=== PATIENT | male | born 1945 | race Caucasian/White ===

== ENCOUNTER 2017-04-20 06:29 | Day surgery (SDC) | payer MEDICARE, BC, OTHER ==
[~2017-04-20] VITALS: Ht 172.7 cm; Wt 86.4 kg
[~2017-04-20 06:29] MED LIST: ALPR2TAB3 PO; ASPI81TA82 PO; CLON.1 PO; EZET10 PO; FOLI1TAB PO; HYDR10TA23 PO; ISOS20TA38 PO; JALYCAP PO; LOSA100T PO; MAGN400T19 PO; METF1000 PO; METO100T9 PO; NITR0.4S SL; PLAV75TA PO; RANE1000 PO; ROSU40 PO; VIST25CA PO; VITATAB11 PO; XANA0.5T PO
[2017-04-20 06:47] VITALS: BP 211/101; PULSE 88; RESP 20; TEMP 97.8; O2SAT 93
[2017-04-20] MEDS ORDERED: FOLI800T PO (07:02)
[2017-04-20] MEDS ORDERED: TRAM50TA PO (07:02)
[2017-04-20] MEDS ORDERED: METO100T9 PO (07:02)
[2017-04-20] MEDS ORDERED: JALYCAP PO (07:02)
[2017-04-20] MEDS ORDERED: LORA-373 PO (07:02)
[2017-04-20] MEDS ORDERED: MAGN400T2 PO (07:02)
[2017-04-20] MEDS ORDERED: PROC10TA PO (07:02)
[2017-04-20] MEDS ORDERED: NITR1SUB3 SL (07:02)
[2017-04-20] MEDS ORDERED: OLAN2.5T PO (07:02)
[2017-04-20] MEDS ORDERED: ENOX80P SQ (07:02)
[2017-04-20] MEDS ORDERED: VITATAB11 (07:02)
[2017-04-20] MEDS ORDERED: BICA50TA PO (07:02)
[2017-04-20] MEDS ORDERED: OMEP20TA PO (07:02)
[2017-04-20] MEDS ORDERED: FERR325C PO (07:02)
[2017-04-20] MEDS ORDERED: LOSA50TA PO (07:02)
[2017-04-20 07:27] LABS: AUTOMATED NEUTROPHIL # 3.6 TH/MM3 (1.8-7.7); BASOPHIL % 0.6 % (0.0-2.0); EOSINOPHIL # 0.1 TH/MM3 (0-0.4); EOSINOPHIL % 1.5 % (0.0-4.0); HEMATOCRIT 31.9 % (39.0-51.0); HEMO FLAGS DIFF FINAL; MEAN CELL VOLUME 82.8 FL (80.0-100.0); MEAN CORPUSCULAR HEMOGLOBIN 27.9 PG (27.0-34.0); MEAN CORPUSCULAR HGB CONC 33.7 % (32.0-36.0); MONO % 9.2 % (0.0-8.0); NEUT % 56.7 % (16.0-70.0); PLATELET COUNT 279 TH/MM3 (150-450); RED BLOOD COUNT 3.85 MIL/MM3 (4.50-5.90); RED CELL DISTRIBUTION WIDTH 15.3 % (11.6-17.2); WHITE BLOOD COUNT 6.4 TH/MM3 (4.0-11.0)
[2017-04-20] MEDS ORDERED: ceFAZolin 2 GM PREMIX 50 ML - implanted port/tunneled catheter insertion IV SCH (07:30)
[2017-04-20] MEDS ORDERED: POVIDONE IODINE 5% (ANTISEPSIS KIT) 4 APPLICATIONS EACH NARE SCH (07:30)
[2017-04-20] MEDS ORDERED: CHLORHEXIDINE GLUCONATE 2 % 1 PACK (2 CLOTHS) TOPICAL SCH (07:30)
[2017-04-20] MEDS ORDERED: SODIUM CHLORIDE 0.9% 1000 ML IV SCH (07:30)
[2017-04-20] MEDS ORDERED: VANCOMYCIN 1000 MG/NS 250 ML - implanted port/tunneled catheter IV SCH ×2 (07:30)
[2017-04-20 07:40] LABS: APTT (PATIENT) 28.2 SEC (24.3-30.1); PROTHROMBIN TIME - PATIENT 10.5 SEC (9.8-11.6)
[2017-04-20] MEDS ORDERED: MIDAZOLAM HCL 2 MG/2 ML VIAL ONE (07:57)
[2017-04-20] MEDS ORDERED: LIDOCAINE 1%/EPINEPHrine 1:100,000 SOLN 20 ML VIAL ONE (08:09)
--- NOTE | 2017-04-20 09:11 | PD.RAD ---
Post Procedure Progress Note Pre Procedure Diagnosis: (1) Gastric carcinoma Post Procedure Diagnosis: (1) Gastric carcinoma Procedure Date: Apr 20, 2017 Supervising Radiologist: Camilo Armenta JR Proceduralist/Assist: Jonnathan Madera RT(R), RT Krystal(R)() Anesthesia: Conscious Sedation Plan of Activity Patient to Unit: ROPU Patient Condition: Good See PACS Report for procedural detail/treatment Central Venous Access Device Procedure 1 Right Internal Jugular Infusaport Placement single lumen Cameroonian: 8 Findings: Port in good position and functions well. OK to use Plan F/U in 10-14 days Jr. Armenta Thomas Justin MD Apr 20, 2017 09:11
[2017-04-20] MEDS ORDERED: SODIUM CHLORIDE 0.9% FLUSH 10 ML FLUSH IVF PRN (09:15)
[2017-04-20 09:25] VITALS: BP 186/84; PULSE 89; RESP 18; TEMP 98.5; O2SAT 92
[2017-04-20 09:40] VITALS: BP 167/74; PULSE 81; RESP 16; O2SAT 97
[2017-04-20 10:10] VITALS: BP 155/70; PULSE 80; RESP 16; O2SAT 95
[2017-04-20 10:40] VITALS: BP 134/69; PULSE 80; RESP 16; O2SAT 94
--- NOTE | 2017-04-20 11:34 | RADRPT ---
EXAM DATE/TIME: 04/20/2017 08:20 [facility] COMPARISON: No previous studies available for comparison. INDICATIONS : Patient with gastric cancer in need of port placement for chemotherapy. MEDICAL HISTORY : 1.Acoustic neuroma 2.Angina pectoris 3.Anxiety 4.Arthralgia 5.BPH 6.CAD 7.Carotid artery stenosis 8.Cataract 9.CVA 10.GERD 11.Hyperlipidemia 12.HTN 13.Iron deficiency anemia 14.Kidney stones 15.PVD 16.Pulmonary embolism 17.Prostate cancer 18.Sleep apnea SURGICAL HISTORY : 1.IVC filter placement 2.Coronary stent ENCOUNTER: Initial ACUITY: 7-11 months PAIN SCORE: 5/10 LOCATION: Left upper quadrant/abdominal. FLUORO TIME: 0.7 minutes IMAGE SERIES: 1 SEDATION TIME: 30 minutes ACCESS: Right internal jugular vein SEDATION: 1.) 4 mg midazolam (Versed) IV 2.) 200 mcg fentanyl (Sublimaze) IV Prophylactic antibiotics were administered with appropriate pre-procedure timing. Vancomycin within 2 hours of procedure, Ancef (or alternative) within 1 hour of procedure. DEVICE: 1. 8 Bhutanese single lumen Angiodynamics smart power port PROCEDURE : 1. Continuous pulse oximetry and EKG monitoring. 2. Intravenous conscious sedation. 3. Ultrasound guidance for venous access. 4. Fluoroscopic guided implantable central venous port placement. The patient was placed supine. The neck was prepped in sterile fashion. Full sterile technique was u sed, including cap, mask, sterile gloves and gown, and a large sterile sheet. Hand hygiene and 2% ch lorhexidine Betadine was utilized per protocol for cutaneous antisepsis with appropriate dry time for site. Sterile gel and sterile probe cover were utilized for ultrasound guidance. The skin and sub cutaneous tissues were infiltrated with local anesthetic solution. Under direct ultrasound guidance, central venous access was accomplished in the targeted vessel. The ultrasound images depicting access guidance were stored and saved to PACS for permanent record. A s ubcutaneous pocket was created using blunt dissection. The port was introduced to the pocket. The c atheter tubing was fed through a subcutaneous tunnel to the venotomy site. The catheter tubing was c ut to a suitable length and then was introduced through a valved Peel-Away sheath and positioned with catheter tubing tip at the cavo-atrial junction level. The pocket incision was closed with subcutic ular Vicryl suture. Steri-Strips were applied. The port was flushed and locked with heparin solutio n per protocol. Sterile dressing was applied to the site. The patient tolerated the procedure well. Conscious sedation was performed with the prescribed dosages and duration as above in the presence of an independent trained radiology nurse to assist in the monitoring of the patient. EKG and oximetry remained stable throughout the procedure. The patient tolerated the procedure well and there were no complications. The patient was sent to post anesthesia recovery in stable condition. CONCLUSION: Uncomplicated ultrasound and fluoroscopic guided implanted central venous port catheter placement as described in detail above. An 8 Bhutanese Power port was placed. Camilo Armenta Jr., MD on April 20, 2017 at 11:31 Board Certified Radiologist. This report was verified electronically.
== END 2017-04-20 11:33 | disposition home or self-care (01) ==
LOC: HROP 06:29 → HRIP 06:33 → HROP 11:33
PROVIDERS: ATTEND Internal Medicine
DX: C16.9 Malignant neoplasm of stomach, unspecified (principal); D64.9 Anemia, unspecified; I82.509 Chronic embolism and thrombosis of unspecified deep veins of unspecified lower extremity; I10 Essential (primary) hypertension; K21.9 Gastro-esophageal reflux disease without esophagitis; N40.0 Benign prostatic hyperplasia without lower urinary tract symptoms; Z95.5 Presence of coronary angioplasty implant and graft; Z01.818 Encounter for other preprocedural examination
CPT/HCPCS: 36561; 76937; 77001; 85025; 85610; 85730; 99152; 99153; C1788; J0690; J1642; J2250; J3010; J3370; J7030; J7050

== ENCOUNTER 2017-05-04 06:46 | Day surgery (SDC) | payer MEDICARE, BC, OTHER ==
[~2017-05-04] VITALS: Ht 172.7 cm; Wt 86.4 kg
[2017-05-04] VITALS (8 sets, daily range): BP systolic 104–190; BP diastolic 45–95; PULSE 68–82; RESP 16–20; TEMP 97.6–98.4; O2SAT 92–95
[~2017-05-04 06:46] MED LIST changes: -ALPR2TAB3 PO; -ASPI81TA82 PO; +BICA50TA PO; -CLON.1 PO; +ENOX80P SQ; -EZET10 PO; +FERR325C PO; -FOLI1TAB PO; +FOLI800T PO; -HYDR10TA23 PO; -ISOS20TA38 PO; +LORA0.5T PO; -LOSA100T PO; +LOSA50TA PO; -MAGN400T19 PO; +MAGN400T2 PO; -METF1000 PO; -METO100T9 PO; +METO1TAB43 PO; -NITR0.4S SL; +NITR1SUB3 SL; +OLAN2.5T7 PO; +OMEP20TA93 PO; -PLAV75TA PO; +PROC10TA PO; -RANE1000 PO; -ROSU40 PO; +TRAM50TA PO; -VIST25CA PO; +VITATAB11; -VITATAB11 PO; -XANA0.5T PO
[2017-05-04] MEDS ORDERED: LIDOCAINE 1%/EPINEPHrine 1:100,000 SOLN 20 ML VIAL ONE (07:40)
[2017-05-04] MEDS ORDERED: MIDAZOLAM HCL 2 MG/2 ML VIAL ONE (07:53)
--- NOTE | 2017-05-04 08:41 | PD.RAD ---
Post CT Procedure Prog Note Pre Procedure Diagnosis: (1) Gastric carcinoma Post Procedure Diagnosis: (1) Gastric carcinoma Procedure Date: May 04, 2017 Supervising Radiologist: Ariel Mac Anesthesia: Conscious Sedation Plan of Activity Patient to Unit: ROPU Patient Condition: Good See PACS Report for procedural detail/treatment Ariel Mac MD May 04, 2017 08:40
[2017-05-04] MEDS ORDERED: HYDROmorphone HCL 2 MG TAB PO PRN (08:45)
[2017-05-04] MEDS ORDERED: PILL SPLITTER OTHER PRN (09:00)
--- NOTE | 2017-05-04 09:36 | RADRPT ---
EXAM DATE/TIME: 05/04/2017 08:04 [facility] COMPARISON: No previous studies available for comparison. INDICATIONS : History of gastric CA with metastatic disease to the omentum and liver. Additional biopsy has been re quested for genetic testing. The hepatic mass will be targeted to ensure adequate tissue. SEDATION TIME: 30 minutes BIOPSY SITE: Liver MEDICATION(S): 1.) 3 mg midazolam (Versed) IV 2.) 200 mcg fentanyl (Sublimaze) IV DEVICE(S): 1.) 18 gauge Temno core biopsy needle 2.) 17 gauge Coaxial 3.) Gelfoam MEDICAL HISTORY : Carcinoma, gastric. Metastatic, liver. Cardiovascular disease. Prostate cancer. Hypertension. SURGICAL HISTORY : Coronary artery stent. ENCOUNTER: Initial ACUITY: 1 day PAIN SCORE: 0/10 LOCATION: Liver A total of five core specimen(s) were obtained and sent to the laboratory for pathologic evaluation. PROCEDURE: 1. CT guided liver biopsy. 2. Conscious sedation with continuous EKG and oximetry monitoring. 3. EKG and oximetry remained stable throughout the procedure. Prior to the procedure informed consent was obtained. Any appropriate prior imaging studies were rev iewed. Using automated exposure control and adjustment of the mA and/or kV according to patient size, radiat ion dose was kept as low as reasonably achievable to obtain optimal diagnostic quality images. DICOM format image data is available electronically for review and comparison. The site was prepped in a sterile fashion. Full sterile technique was used, including cap, mask, karin rile gloves and gown and a large sterile sheet. Hand hygiene and 2% chlorhexidine and/or betadine/al cohol prep was utilized per protocol for cutaneous antisepsis. The skin and subcutaneous tissues wer e infiltrated with local anesthetic solution. With CT guidance the previously identified target was localized. Biopsy was performed using the presc ribed needle as above. Adequate hemostasis was obtained with compression at the puncture site. Follow-up CT scan reveals no hemorrhage. The patient tolerated the procedure well and there were no complications. The patient was returned to the Radiology Outpatient Unit in stable condition. CONCLUSION: Uncomplicated CT guided biopsy. Ariel Mac MD on May 04, 2017 at 9:31 Board Certified Radiologist. This report was verified electronically.
== END 2017-05-04 12:38 | disposition home or self-care (01) ==
LOC: HRAD 06:46 → HRIP 06:49 → HRAD 12:38
PROVIDERS: ATTEND Internal Medicine
DX: C78.7 Secondary malignant neoplasm of liver and intrahepatic bile duct (principal); C16.9 Malignant neoplasm of stomach, unspecified; C61 Malignant neoplasm of prostate; I10 Essential (primary) hypertension; I25.10 Atherosclerotic heart disease of native coronary artery without angina pectoris; Z95.5 Presence of coronary angioplasty implant and graft
CPT/HCPCS: 47000; 77012; 88307; 88341; 88342; 88360; 88377; J1642; J2250; J3010

== ENCOUNTER 2017-05-18 12:14 | Inpatient (IN) | payer MEDICARE, BC, OTHER ==
[~2017-05-18] VITALS: Ht 172.7 cm; Wt 82.7 kg
[2017-05-18 12:44] VITALS: BP 113/56; PULSE 95; RESP 18; TEMP 99.1; O2SAT 96
[2017-05-18 13:42] VITALS: BP 130/53; PULSE 74; RESP 18; TEMP 98.9; O2SAT 96
[2017-05-18] MEDS ORDERED: SODIUM CHLORIDE 0.9% FLUSH 10 ML FLUSH IVF PRN (14:00)
[2017-05-18] MEDS ORDERED: PROCHLORPERAZINE INJ 10 MG/2 ML VIAL IV PUSH ONE (14:00)
[2017-05-18 14:55] VITALS: BP 135/60; PULSE 78; RESP 18; O2SAT 95
[2017-05-18 15:09] LABS: AUTOMATED NEUTROPHIL # 18.8 TH/MM3 (1.8-7.7); BASOPHIL # 0.1 TH/MM3 (0-0.2); BASOPHIL % 0.3 % (0.0-2.0); EOSINOPHIL % 0.1 % (0.0-4.0); HEMATOCRIT 26.9 % (39.0-51.0); LYMPH % 8.1 % (9.0-44.0); LYMPHOCYTE # 1.7 TH/MM3 (1.0-4.8); MEAN CELL VOLUME 78.6 FL (80.0-100.0); MEAN CORPUSCULAR HEMOGLOBIN 25.6 PG (27.0-34.0); MEAN CORPUSCULAR HGB CONC 32.6 % (32.0-36.0); MONO % 2.2 % (0.0-8.0); NEUT % 89.3 % (16.0-70.0); PLATELET COUNT 364 TH/MM3 (150-450); RED BLOOD COUNT 3.43 MIL/MM3 (4.50-5.90); RED CELL DISTRIBUTION WIDTH 14.6 % (11.6-17.2)
[2017-05-18 15:15] LABS: HEMO FLAGS AUTO DIFF
[2017-05-18 15:16] LABS: CHLORIDE 99 MEQ/L (98-107); POTASSIUM 4.3 MEQ/L (3.5-5.1); SODIUM (NA) 134 MEQ/L (136-145)
[2017-05-18 15:20] LABS: ANION GAP 7 MEQ/L (5-15); APTT (PATIENT) 36.4 SEC (24.3-30.1); BICARBONATE 27.8 MEQ/L (21.0-32.0); BLOOD UREA NITROGEN 19 MG/DL (7-18); PROTHROMBIN TIME - PATIENT 11.2 SEC (9.8-11.6)
[2017-05-18 15:23] LABS: ALT (GPT) 33 U/L (12-78); AST (GOT) 25 U/L (15-37); GLOMERULAR FILTRATION RATE 54 ML/MIN (>89)
--- NOTE | 2017-05-18 15:24 | RADRPT ---
EXAM DATE/TIME: 05/18/2017 15:11 [facility] COMPARISON: CHEST SINGLE AP, July 04, 2014, 16:10. INDICATIONS : Difficulty breathing and wheezing. MEDICAL HISTORY : Carcinoma, gastric. Metastatic, liver. Cardiovascular disease. Prostate cancer. Hypertension. SURGICAL HISTORY : CABG. Coronary artery stent. Infusaport. ENCOUNTER: Initial ACUITY: 1 day PAIN SCORE: 0/10 LOCATION: Bilateral chest FINDINGS: A single view of the chest demonstrates the lungs to be symmetrically aerated without evidence of mas s, infiltrate or effusion. The cardiomediastinal contours are unremarkable. Osseous structures are intact. CONCLUSION: Normal examination. At least 4 intact sternal wires. Right-sided Jnqunt-m-Tevr catheter in good posit ion. Ignacio Huynh MD on May 18, 2017 at 15:22 Board Certified Radiologist. This report was verified electronically.
[2017-05-18 15:25] LABS: TOTAL BILIRUBIN ADULT 0.5 MG/DL (0.2-1.0)
[2017-05-18 15:26] LABS: ALKALINE PHOSPHATASE 160 U/L (45-117)
[2017-05-18 15:37] LABS: CREATINE KINASE 47 U/L (39-308)
[2017-05-18 15:40] LABS: SCAN/DIFF AUTO DIFF CONFIRMED
[2017-05-18 15:52] VITALS: BP 142/64; PULSE 71; RESP 17; O2SAT 97
[2017-05-18] MEDS ORDERED: IOHEXOL 350 MG/ML 10 ML VIAL (for RAD DIAG) IVCONTRAST ONE (16:15)
--- NOTE | 2017-05-18 16:25 | RADRPT ---
EXAM DATE/TIME: 05/18/2017 16:00 [facility] COMPARISON: No previous studies available for comparison. INDICATIONS : Right chest pain. Evaluate for embolism. IV CONTRAST: 65 cc Omnipaque 350 (iohexol) IV RADIATION DOSE: 14.72 CTDIvol (mGy) MEDICAL HISTORY : Carcinoma, prostate. Carcinoma, gastric. Cerebrovascular disease. Hypertension. SURGICAL HISTORY : CABG ENCOUNTER: Initial ACUITY: 1 day PAIN SCALE: 5/10 LOCATION: Right chest TECHNIQUE: Volumetric scanning of the chest was performed using a pulmonary embolism protocol MIP images were re constructed. Using automated exposure control and adjustment of the mA and/or kV according to patien t size, radiation dose was kept as low as reasonably achievable to obtain optimal diagnostic quality images. DICOM format image data is available electronically for review and comparison. Follow-up recommendations for detected pulmonary nodules are based at a minimum on nodule size and pa tient risk factors according to Fleischner Society Guidelines. FINDINGS: PULMONARY ARTERIES: No filling defects are seen in the pulmonary arteries through the segmental level. LUNGS: There is a minimal consolidation left lung base . There is no pneumothorax . No concerning pulmonary nodule is visualized. 2 mm pulmonary nodule right upper lobe. 1 cm nodule left lower lobe PLEURAE: There is no pleural thickening or pleural effusion. MEDIASTINUM: There is good visualization of the great vessels of the middle mediastinum. No evidence of mediastin al or hilar adenopathy/mass. Dense coronary atherosclerotic disease. Clips and wires suggest CABG MUSCULOSKELETAL: Within normal limits for patient age. MISCELLANEOUS: The visualized upper abdominal organs demonstrate no acute abnormality. CONCLUSION: No evidence of pulmonary embolism. Small pleural nodule left lower lobe should be followed with nonco ntrast chest CT in 6 months. Minimal consolidation left lung base. Dense coronary atherosclerotic dis ease. Ignacio Huynh MD on May 18, 2017 at 16:20 Board Certified Radiologist. This report was verified electronically.
--- NOTE | 2017-05-18 16:59 | PD ---
HPI Chief Complaint: Respiratory Symptoms Time Seen by Provider: 13:47 Travel History International Travel<30 days: No Contact w/Intl Traveler<30days: No Traveled to known affect area: No History of Present Illness HPI Patient is a 72 year old male presents to the ER for evaluation of cough, sob and hiccoughs. Patient is undergoing chemotherapy for gastric cancer and has occaisional phrenic nerve irritation. Hiccups present for the past 24 hours. His states that she gave him opiate pain medication last night and thinks she might have over-medicated him. No fevers, no sputum production. Symptoms moderate, gradually worsening, context as above, associated s/s as above. PFSH Past Medical History Anxiety: Yes Cancer: Yes (prostate, stomach) Cardiac Catheterization: Yes Cardiovascular Problems: Yes (cabg, heart stents, vascular stents) Diabetes: Yes Patient Takes Glucophage: No Endocrine: No Gastrointestinal Disorders: Yes (stomach cancer, ulcers) Genitourinary: Yes (prostate cancer) Hepatitis: No Hiatal Hernia: Yes Hypertension: Yes Immune Disorder: No Kidney Stones: Yes Medical other: Yes Musculoskeletal: Yes (arthritis in knees) Neurologic: Yes (cva x 2) Psychiatric: Yes (anxiety) Reproductive: No Respiratory: Yes (sleep apnea) Immunizations Current: No Thyroid Disease: No Tetanus Vaccination: Unknown Influenza Vaccination: No Past Surgical History AICD: No Cardiac Surgery: Yes (triple bypass) Coronary Artery Bypass Graft: Yes Coronary Stent: Yes Joint Replacement: No Pacemaker: No Other Surgery: Yes Social History Alcohol Use: Yes Tobacco Use: No Substance Use: No Allergies-Medications (Allergen,Severity, Reaction): Coded Allergies: No Known Allergies (Unverified Allergy, Unknown, 05/18/17) Reported Meds & Prescriptions Reported Meds & Active Scripts Active Reported Vitamin B Complex (B-Complex Vitamins) 1 Tab DAILY Tramadol (Tramadol HCl) 50 Mg Tab 50 Mg PO Q8H PRN Prochlorperazine Maleate 10 Mg Tab 10 Mg PO Q4H PRN Omeprazole 20 Mg Tab 20 Mg PO DAILY Bicalutamide 50 Mg Tab 50 Mg PO DAILY Hazardous agent; use appropriate precautions for handling & disposal. Losartan (Losartan Potassium) 50 Mg Tab 50 Mg PO DAILY Magnesium Oxide 400 Mg Tab 400 Mg PO DAILY Nitroglycerin SL (Nitroglycerin) 0.4 Mg Subl 0.4 Mg SL DIRECTED PRN ONE TABLET UNDER THE TONGUE NEEDED FOR CHEST PAIN, MAY REPEAT EVERY FIVE MINUTES FOR A TOTAL OF 3 DOSES OR CALL 911 IF NO RELIEF Iron (Ferrous Sulfate) 325 Mg Cap 325 Mg PO DAILY Lovenox Inj (Enoxaparin Sodium) 80 mg/0.8 ML Syr 80 Mg SQ BID Olanzapine 2.5 Mg Tab 2.5 Mg PO HS Folic Acid 0.8 Mg Tab 1,000 Mcg PO DAILY Metoprolol Succinate ER 24 HR (Metoprolol Succinate) 100 Mg Tab 100 Mg PO DAILY Caro (Dutasteride-Tamsulosin) 0.5-0.4 Mg Cap 1 Cap PO DAILY Lorazepam 0.5 Mg Tab 0.5 Mg PO DAILY PRN Review of Systems Except as stated in HPI: all other systems reviewed are Neg Physical Exam Narrative GENERAL: WD/WN appears chronically ill but non-toxic. SKIN: Warm and dry. HEAD: Atraumatic. Normocephalic. EYES: Pupils equal and round. No scleral icterus. No injection or drainage. ENT: No nasal bleeding or discharge. Mucous membranes pink and moist. NECK: Trachea midline. No JVD. CARDIOVASCULAR: Tachycardic when he stands, regular rhythm. RESPIRATORY: No accessory muscle use. Clear to auscultation. Breath sounds equal bilaterally. GASTROINTESTINAL: Abdomen soft, non-tender, nondistended. Hepatic and splenic margins not palpable. MUSCULOSKELETAL: Extremities without clubbing, cyanosis, or edema. No obvious deformities. NEUROLOGICAL: Awake and alert. No obvious cranial nerve deficits. Motor grossly within normal limits. Five out of 5 muscle strength in the arms and legs. Normal speech. PSYCHIATRIC: Appropriate mood and affect; insight and judgment normal. Data Data Last Documented VS Vital Signs Date Time Temp Pulse Resp B/P (MAP) Pulse Ox O2 Delivery O2 Flow Rate FiO2 05/18/17 15:52 71 17 142/64 (90) 97 05/18/17 13:42 98.9 Orders Orders Electrocardiogram (05/18/17 13:58) Ckmb (Isoenzyme) Profile (05/18/17 13:58) Complete Blood Count With Diff (05/18/17 13:58) Comprehensive Metabolic Panel (05/18/17 13:58) Magnesium (Mg) (05/18/17 13:58) Prothrombin Time / Inr (Pt) (05/18/17 13:58) Act Partial Throm Time (Ptt) (05/18/17 13:58) Troponin I (05/18/17 13:58) Chest, Single Ap (05/18/17 13:58) Ecg Monitoring (05/18/17 13:58) Iv Access Insert/Monitor (05/18/17 13:58) Oximetry (05/18/17 13:58) Oxygen Administration (05/18/17 13:58) Sodium Chloride 0.9% Flush (Ns Flush) (05/18/17 14:00) Ct Pulmonary Angiogram (05/18/17 ) Prochlorperazine Inj (Compazine Inj) (05/18/17 14:00) Influenzae A/B Antigen (05/18/17 15:33) Iohexol 350 Inj (Omnipaque 350 Inj) (05/18/17 16:15) Lactic Acid (05/18/17 16:53) Blood Culture (05/18/17 16:53) Vancomycin Inj (Vancomycin Inj) (05/18/17 17:00) Piperacil-Tazo 4.5 Gm Premix (Zosyn 4.5 (05/18/17 17:00) Admit Order (Ed Use Only) (05/18/17 ) Labs Laboratory Tests Test 05/18/17 14:55 White Blood Count 21.0 TH/MM3 Red Blood Count 3.43 MIL/MM3 Hemoglobin 8.8 GM/DL Hematocrit 26.9 % Mean Corpuscular Volume 78.6 FL Mean Corpuscular Hemoglobin 25.6 PG Mean Corpuscular Hemoglobin Concent 32.6 % Red Cell Distribution Width 14.6 % Platelet Count 364 TH/MM3 Mean Platelet Volume 7.8 FL Neutrophils (%) (Auto) 89.3 % Lymphocytes (%) (Auto) 8.1 % Monocytes (%) (Auto) 2.2 % Eosinophils (%) (Auto) 0.1 % Basophils (%) (Auto) 0.3 % Neutrophils # (Auto) 18.8 TH/MM3 Lymphocytes # (Auto) 1.7 TH/MM3 Monocytes # (Auto) 0.5 TH/MM3 Eosinophils # (Auto) 0.0 TH/MM3 Basophils # (Auto) 0.1 TH/MM3 CBC Comment AUTO DIFF Differential Comment AUTO DIFF CONFIRMED Prothrombin Time 11.2 SEC Prothromb Time International Ratio 1.0 RATIO Activated Partial Thromboplast Time 36.4 SEC Blood Urea Nitrogen 19 MG/DL Creatinine 1.30 MG/DL Random Glucose 107 MG/DL Total Protein 6.7 GM/DL Albumin 2.8 GM/DL Calcium Level 8.9 MG/DL Magnesium Level 2.0 MG/DL Alkaline Phosphatase 160 U/L Aspartate Amino Transf (AST/SGOT) 25 U/L Alanine Aminotransferase (ALT/SGPT) 33 U/L Total Bilirubin 0.5 MG/DL Sodium Level 134 MEQ/L Potassium Level 4.3 MEQ/L Chloride Level 99 MEQ/L Carbon Dioxide Level 27.8 MEQ/L Anion Gap 7 MEQ/L Estimat Glomerular Filtration Rate 54 ML/MIN Total Creatine Kinase 47 U/L Troponin I LESS THAN 0.02 NG/ML MDM Medical Decision Making Medical Screen Exam Complete: Yes Emergency Medical Condition: Yes Differential Diagnosis PE, PNA, Immunocompromise, Neutropenia, sepsis. Narrative Course Patient 72-year-old female history gastric cancer on chemotherapy last chemotherapy was a week and a half ago by Dr. Mcgowan presents emergency department with cough congestion shortness of breath which had fairly high suspicion of PE. Initially afebrile infection less likely. CAT scan of the chest shows a small left base consolidation and on discussing with he had taken opiates last night and had over medicated and therefore possibly aspiration last night.. Will be started on broad-spectrum antibiotic given his white count 20,000 he is technically septic with mild tachycardia. He appears well in low index systems are septic shock, does not meet criteria for aggressive fluid resuscitation. Lactic acid was sent once the patient had an infection source suspected/revealed which was after CT scan. Discussed with Dr. Lyman for admission Last 24 hours Impressions Chest X-Ray 05/18/17 1358 Signed Impressions: Service Date/Time: Thursday, May 18, 2017 15:11 - CONCLUSION: Normal examination. At least 4 intact sternal wires. Right-sided [id number] catheter in good position. Ignacio Huynh MD CT Angiography 05/18/17 0000 Signed Impressions: Service Date/Time: Thursday, May 18, 2017 16:00 - CONCLUSION: No evidence of pulmonary embolism. Small pleural nodule left lower lobe should be followed with noncontrast chest CT in 6 months. Minimal consolidation left lung base. Dense coronary atherosclerotic disease. Ignacio Huynh MD Diagnosis Primary Impression: Sepsis Additional Impression: Aspiration pneumonia of left lower lobe Admitting Information Admitting Physician Requests: Admit Condition: Stable Jaxson Minor MD May 18, 2017 16:59
[2017-05-18] MEDS ORDERED: VANCOMYCIN INJ 1,000 MG in SODIUM CHLOR 0.9% 250 ML INJ 250 ML IV ONE (17:00)
[2017-05-18] MEDS ORDERED: PIPERACIL-TAZO 4.5 GM PREMIX 100 ML IV ONE (17:00)
[2017-05-18] MEDS ORDERED: ONDANSETRON HCL 4 MG/2 ML VIAL IVP PRN (17:15)
[2017-05-18] MEDS ORDERED: SODIUM CHLORIDE 0.9% FLUSH 10 ML FLUSH IV FLUSH PRN (17:15)
[2017-05-18] MEDS ORDERED: MAGNESIUM HYDROXIDE SUSP 30 ML CUP PO PRN (17:15)
[2017-05-18] MEDS ORDERED: NALOXONE HCL 0.4 MG/ML AMP IV PUSH PRN (17:15)
[2017-05-18] MEDS ORDERED: ACETAMINOPHEN 325 MG TAB PO PRN ×2 (17:15)
--- NOTE | 2017-05-18 17:19 | HHI.HP ---
HPI Service [facility] Primary Care Physician Non-Staff Admission Diagnosis Pneumonia/Sepsis. Diagnoses: (1) Aspiration pneumonia of left lower lobe (2) Sepsis Chief Complaint: Shortness of breath and cough production Travel History International Travel<30 Days: No Contact w/Intl Traveler <30 Da: No Traveled to Known Affected Are: No Sepsis Criteria SIRS Criteria (2 or more): Heart rate over 90, WBC > 02276, < 4000 or > 10% bands Sepsis Criteria (SIRS+source): Infect source susp/known Criteria Outcome: Meets sepsis criteria History of Present Illness 72-year-old man with a history of gastric cancer and currently on chemotherapy therapy presented to the ED for evaluation of cough congestion, shortness of breath 48 hours duration. Over the past several days, patient has been having difficulty with hiccups and insomnia. Patient's was concerned about his breathing last night and gave him in addition to his Ativan some oxycodone in order to allow him to sleep, however patient started having severe cough production with sputum but denies any febrile episode. He denies any GI bleed Review of Systems Except as stated in HPI: all other systems reviewed are Neg Past Family Social History Past Medical History Anxiety: Yes cabg, heart stents, vascular stents Diabetes: Yes stomach cancer, ulcers prostate cancer Hiatal Hernia: Yes Hypertension: Yes Kidney Stones: Yes cva x 2 sleep apnea Past Surgical History Cardiac Surgery: Yes (triple bypass) Coronary Artery Bypass Graft: Yes Coronary Stent: Yes Reported Medications Vitamin B Complex (B-Complex Vitamins) 1 Tab DAILY Tramadol (Tramadol HCl) 50 Mg Tab 50 Mg PO Q8H PRN Prochlorperazine Maleate 10 Mg Tab 10 Mg PO Q4H PRN Omeprazole 20 Mg Tab 20 Mg PO DAILY Bicalutamide 50 Mg Tab 50 Mg PO DAILY Hazardous agent; use appropriate precautions for handling & disposal. Losartan (Losartan Potassium) 50 Mg Tab 50 Mg PO DAILY Magnesium Oxide 400 Mg Tab 400 Mg PO DAILY Nitroglycerin SL (Nitroglycerin) 0.4 Mg Subl 0.4 Mg SL DIRECTED PRN ONE TABLET UNDER THE TONGUE NEEDED FOR CHEST PAIN, MAY REPEAT EVERY FIVE MINUTES FOR A TOTAL OF 3 DOSES OR CALL 911 IF NO RELIEF Iron (Ferrous Sulfate) 325 Mg Cap 325 Mg PO DAILY Lovenox Inj (Enoxaparin Sodium) 80 mg/0.8 ML Syr 80 Mg SQ BID Olanzapine 2.5 Mg Tab 2.5 Mg PO HS Folic Acid 0.8 Mg Tab 1,000 Mcg PO DAILY Metoprolol Succinate ER 24 HR (Metoprolol Succinate) 100 Mg Tab 100 Mg PO DAILY Caro (Dutasteride-Tamsulosin) 0.5-0.4 Mg Cap 1 Cap PO DAILY Lorazepam 0.5 Mg Tab 0.5 Mg PO DAILY PRN Allergies: Coded Allergies: No Known Allergies (Unverified Allergy, Unknown, 05/18/17) Family History Due to patient advanced age, family's history not relevant Social History Alcohol Use: Yes Tobacco Use: No Substance Use: No Physical Exam Vital Signs Vital Signs Date Time Temp Pulse Resp B/P (MAP) Pulse Ox O2 Delivery O2 Flow Rate FiO2 05/18/17 12:44 99.1 95 18 113/56 (75) 96 Physical Exam GENERAL: This is a well-nourished, well-developed patient, in no apparent distress. SKIN: No rashes, ecchymoses or lesions. Cool and dry. HEAD: Atraumatic. Normocephalic. No temporal or scalp tenderness. EYES: Pupils equal round and reactive. Extraocular motions intact. No scleral icterus. No injection or drainage. ENT: Nose without bleeding, purulent drainage or septal hematoma. Throat without erythema, tonsillar hypertrophy or exudate. Uvula midline. Airway patent. NECK: Trachea midline. No JVD or lymphadenopathy. Supple, nontender, no meningeal signs. CARDIOVASCULAR: Regular rate and rhythm without murmurs, gallops, or rubs. RESPIRATORY: Clear to auscultation. Breath sounds decreased bilaterally. No wheezes, rales, or rhonchi. GASTROINTESTINAL: Abdomen soft, non-tender, nondistended. No hepato-splenomegaly , or palpable masses. No guarding. MUSCULOSKELETAL: Extremities without clubbing, cyanosis, or edema. No joint tenderness, effusion, or edema noted. No calf tenderness. Negative Homans sign bilaterally. NEUROLOGICAL: Awake and alert. Cranial nerves II through XII intact. Motor and sensory grossly within normal limits. Five out of 5 muscle strength in all muscle groups. Normal speech. Laboratory Laboratory Tests Test 05/18/17 14:55 White Blood Count 21.0 Red Blood Count 3.43 Hemoglobin 8.8 Hematocrit 26.9 Mean Corpuscular Volume 78.6 Mean Corpuscular Hemoglobin 25.6 Mean Corpuscular Hemoglobin Concent 32.6 Red Cell Distribution Width 14.6 Platelet Count 364 Mean Platelet Volume 7.8 Neutrophils (%) (Auto) 89.3 Lymphocytes (%) (Auto) 8.1 Monocytes (%) (Auto) 2.2 Eosinophils (%) (Auto) 0.1 Basophils (%) (Auto) 0.3 Neutrophils # (Auto) 18.8 Lymphocytes # (Auto) 1.7 Monocytes # (Auto) 0.5 Eosinophils # (Auto) 0.0 Basophils # (Auto) 0.1 CBC Comment AUTO DIFF Differential Comment AUTO DIFF CONFIRMED Prothrombin Time 11.2 Prothromb Time International Ratio 1.0 Activated Partial Thromboplast Time 36.4 Blood Urea Nitrogen 19 Creatinine 1.30 Random Glucose 107 Total Protein 6.7 Albumin 2.8 Calcium Level 8.9 Magnesium Level 2.0 Alkaline Phosphatase 160 Aspartate Amino Transf (AST/SGOT) 25 Alanine Aminotransferase (ALT/SGPT) 33 Total Bilirubin 0.5 Sodium Level 134 Potassium Level 4.3 Chloride Level 99 Carbon Dioxide Level 27.8 Anion Gap 7 Estimat Glomerular Filtration Rate 54 Total Creatine Kinase 47 Troponin I LESS THAN 0.02 Date/Time Source Procedure Growth Status 05/18/17 16:25 Nasal Aspirate Influenza Types A,B Antigen (SONU) - Final NEGATIVE FOR FLU A AND B ANTIGEN.... Complete Result Diagram: 05/18/17 1455 05/18/17 1455 Imaging Last Impressions Chest X-Ray 05/18/17 1358 Signed Impressions: Service Date/Time: Thursday, May 18, 2017 15:11 - CONCLUSION: Normal examination. At least 4 intact sternal wires. Right-sided [id number] catheter in good position. Ignacio Huynh MD CT Angiography 05/18/17 0000 Signed Impressions: Service Date/Time: Thursday, May 18, 2017 16:00 - CONCLUSION: No evidence of pulmonary embolism. Small pleural nodule left lower lobe should be followed with noncontrast chest CT in 6 months. Minimal consolidation left lung base. Dense coronary atherosclerotic disease. MD Luna Hoffman VTE Risk Assessment Capcortez VTE Risk Assessment: Mod/High Risk (score >= 2) Caprini Risk Assessment Model Point Value = 1 Point Value = 2 Point Value = 3 Point Value = 5 Age 41-60 Minor surgery BMI > 25 kg/m2 Swollen legs Varicose veins or History of unexplained or recurrent spontaneous Oral contraceptives or hormone replacement Sepsis (< 1 month) Serious lung disease, including pneumonia (< 1 month) Abnormal pulmonary function Acute myocardial infarction Congestive heart failure (< 1 month) History of inflammatory bowel disease Medical patient at bed rest Age 61-74 Arthroscopic surgery Major open surgery (> 45 min) Laparoscopic surgery (> 45 min) Malignancy Confined to bed (> 72 hours) Immobilizing plaster cast Central venous access Age >= 75 History of VTE Family history of VTE Factor V Leiden Prothrombin [id number] Lupus anticoagulant Anticardiolipin antibodies Elevated serum homocysteine Heparin-induced thrombocytopenia Other congenital or acquired thrombophilia Stroke (< 1 month) Elective arthroplasty Hip, pelvis, or leg fracture Acute spinal cord injury (< 1 month) Prophylaxis Regimen Total Risk Factor Score Risk Level Prophylaxis Regimen 0-1 Low Early ambulation 2 Moderate Order ONE of the following: *Sequential Compression Device (SCD) *Heparin 5000 units SQ BID 3-4 Higher Order ONE of the following medications: *Heparin 5000 units SQ TID *Enoxaparin/Lovenox 40 mg SQ daily (WT < 150 kg, CrCl > 30 mL/min) *Enoxaparin/Lovenox 30 mg SQ daily (WT < 150 kg, CrCl > 10-29 mL/min) *Enoxaparin/Lovenox 30 mg SQ BID (WT < 150 kg, CrCl > 30 mL/min) AND/OR *Sequential Compression Device (SCD) 5 or more Highest Order ONE of the following medications: *Heparin 5000 units SQ TID (Preferred with Epidurals) *Enoxaparin/Lovenox 40 mg SQ daily (WT < 150 kg, CrCl > 30 mL/min) *Enoxaparin/Lovenox 30 mg SQ daily (WT < 150 kg, CrCl > 10-29 mL/min) *Enoxaparin/Lovenox 30 mg SQ BID (WT < 150 kg, CrCl > 30 mL/min) AND *Sequential Compression Device (SCD) Assessment and Plan Problem List: (1) Sepsis ICD Code: A41.9 - Sepsis, unspecified organism (2) Aspiration pneumonia of left lower lobe ICD Code: J69.0 - Pneumonitis due to inhalation of food and vomit (3) Aspiration pneumonia ICD Code: J69.0 - Pneumonitis due to inhalation of food and vomit Assessment and Plan 72-year-old man with Sepsis Heart rate over 90, WBC > 93750, < 4000 or > 10% bands Infect source susp/known (aspiration pneumonia) Check lactic acid Status post vancomycin and Zosyn X 1 in ED, will start instead Unasyn IV Q6 hour Aspiration pneumonia of left lower lobe CT angiography noted and review by me with finding of minimal consolidation lower lung base Status post vancomycin and Zosyn, will start instead Unasyn IV every 6 hours pending culture report Check sputum Keep oxygen saturation above 92% Leukocytosis Above infectious processes, monitor Hypertension Resume Lopressor, Cozaar BPH Resume outpatient medications History of gastric cancer Resume outpatient medications Consider oncology consultation Code Status Full code Discussed Condition With Patient, , ED physician Physician Certification 2 Midnight Certification Type: Admission for Inpatient Services Order for Inpatient Services The services are ordered in accordance with Medicare regulations or non- Medicare payer requirements, as applicable. In the case of services not specified as inpatient-only, they are appropriately provided as inpatient services in accordance with the 2-midnight benchmark. Estimated LOS (days): 2 days is the estimated time the patient will need to remain in the hospital, assuming treatment plan goals are met and no additional complications. Post-Hospital Plan: Not yet determined Problem Qualifiers (1) Aspiration pneumonia of left lower lobe: Qualified Codes: J69.0 - Pneumonitis due to inhalation of food and vomit Juan José Lyman MD May 18, 2017 17:19
[2017-05-18] MEDS ORDERED: RESP: ALBUTEROL 2.5 MG/IPRATROPIUM 0.5 MG NEB (PRN) NEB (17:30)
[2017-05-18] MEDS ORDERED: ENALAPRILAT 2.5 MG/2 ML VIAL IV PUSH PRN (17:30)
[2017-05-18 17:50] VITALS: BP 138/60; PULSE 74; RESP 17; TEMP 99.5; O2SAT 95
[2017-05-18 20:00] VITALS: BP 135/63; PULSE 91; RESP 20; TEMP 98.1; O2SAT 97
[2017-05-18] MEDS ORDERED: OXYC1CAP PO (20:48)
[2017-05-18] MEDS: LACTOBACILLUS ACIDOPHILUS TAB PO SCH (20:50)
[2017-05-18] MEDS: SODIUM CHLORIDE 0.9% FLUSH 10 ML FLUSH IV FLUSH SCH (20:51)
[2017-05-18] MEDS ORDERED: OLANZapine 2.5 MG TAB PO SCH (21:00)
[2017-05-18] MEDS: AMPICILLIN-SULBACTAM INJ 3 GM in SODIUM CHLORIDE 0.9% INJ 100 ML IV SCH (22:27)
[2017-05-19] VITALS: BP 118/58; PULSE 86; RESP 20; TEMP 98.5; O2SAT 97
[2017-05-19] MEDS: AMPICILLIN-SULBACTAM INJ 3 GM in SODIUM CHLORIDE 0.9% INJ 100 ML IV SCH ×2 (05:21→13:40)
[2017-05-19 07:50] VITALS: BP 127/59; PULSE 92; RESP 20; TEMP 98.7; O2SAT 96
--- NOTE | 2017-05-19 08:58 | HHI.PR ---
Subjective Remarks Follow-up aspiration pneumonia/sepsis 05/19/17-patient seen and examined, currently afebrile, states he had a good nicely. Reports improvement of shortness of breath. Hiccups improving. Patient was up and ambulated with assistance of PT. by the bedside. Objective Vitals Vital Signs Date Time Temp Pulse Resp B/P (MAP) Pulse Ox O2 Delivery O2 Flow Rate FiO2 05/19/17 00:00 98.5 86 20 118/58 (78) 97 05/18/17 22:39 Nasal Cannula 2.00 05/18/17 20:00 98.1 91 20 135/63 (87) 97 05/18/17 18:35 05/18/17 17:50 99.5 74 17 138/60 (86) 95 05/18/17 15:52 71 17 142/64 (90) 97 05/18/17 14:55 78 18 135/60 (85) 95 05/18/17 13:42 98.9 74 18 130/53 (78) 96 05/18/17 12:44 99.1 95 18 113/56 (75) 96 I/O 05/18/17 05/18/17 05/18/17 05/19/17 05/19/17 05/19/17 07:00 15:00 23:00 07:00 15:00 23:00 Intake Total 350 ml 220 ml Balance 350 ml 220 ml Intake Oral 120 ml IV Total 350 ml 100 ml # Voids 2 # Bowel Movements 3 Result Diagram: 05/18/17 1455 05/18/17 1455 Imaging Last Impressions Chest X-Ray 05/18/17 1358 Signed Impressions: Service Date/Time: Thursday, May 18, 2017 15:11 - CONCLUSION: Normal examination. At least 4 intact sternal wires. Right-sided Qmkdzf-i-Nibo catheter in good position. Ignacio Huynh MD CT Angiography 05/18/17 0000 Signed Impressions: Service Date/Time: Thursday, May 18, 2017 16:00 - CONCLUSION: No evidence of pulmonary embolism. Small pleural nodule left lower lobe should be followed with noncontrast chest CT in 6 months. Minimal consolidation left lung base. Dense coronary atherosclerotic disease. Ignacio Huynh MD Objective Remarks GENERAL: NAD SKIN: Warm and dry. HEAD: Normocephalic. EYES: No scleral icterus. No injection or drainage. NECK: Supple, trachea midline. No JVD or lymphadenopathy. CARDIOVASCULAR: Regular rate and rhythm without murmurs, gallops, or rubs. RESPIRATORY: Breath sounds equal bilaterally. No accessory muscle use. GASTROINTESTINAL: Abdomen soft, non-tender, nondistended. MUSCULOSKELETAL: No cyanosis, or edema. BACK: Nontender without obvious deformity. No CVA tenderness. Procedures none A/P Problem List: (1) Aspiration pneumonia of left lower lobe ICD Code: J69.0 - Pneumonitis due to inhalation of food and vomit (2) Sepsis ICD Code: A41.9 - Sepsis, unspecified organism Assessment and Plan 72-year-old man with Sepsis-resolved Infect source susp/known (aspiration pneumonia) Normal lactic acid Status post vancomycin and Zosyn X 1 in ED, currently on Unasyn IV Q6 hour pending culture report Aspiration pneumonia of left lower lobe CT angiography with finding of minimal consolidation lower lung base Status post vancomycin and Zosyn, continue Unasyn IV every 6 hours pending culture report Keep oxygen saturation above 92% Leukocytosis Above infectious processes, monitor. CBC pending Hypertension Currently on Lopressor, Cozaar BPH Continue outpatient medications History of gastric cancer Continue outpatient medications Consider oncology consultation DVT prophylaxis: Bilateral SCDs Patient's condition tremendously improved since admission, therefore he will be discharged home on oral antibiotic Juan José Lyman MD May 19, 2017 08:58
[2017-05-19] MEDS ORDERED: TAMSULOSIN HCL 0.4 MG CAP PO SCH (09:00)
[2017-05-19] MEDS ORDERED: FINASTERIDE 5 MG TAB PO SCH (09:00)
[2017-05-19] MEDS ORDERED: LOSARTAN 50 MG TAB PO SCH (09:00)
[2017-05-19] MEDS ORDERED: METOPROLOL SUCCINATE 50 MG EXTENDED RELEASE TAB PO SCH (09:00)
[2017-05-19] MEDS ORDERED: BICALUTAMIDE 50 MG TAB PO SCH (09:00)
[2017-05-19] MEDS ORDERED: PANTOPRAZOLE SOD 20 MG DELAYED RELEASE TAB PO SCH (09:00)
[2017-05-19 09:38] LABS: AUTOMATED NEUTROPHIL # 10.7 TH/MM3 (1.8-7.7); BASOPHIL % 0.1 % (0.0-2.0); EOSINOPHIL % 0.2 % (0.0-4.0); HEMATOCRIT 24.3 % (39.0-51.0); LYMPH % 11.9 % (9.0-44.0); LYMPHOCYTE # 1.5 TH/MM3 (1.0-4.8); MEAN CELL VOLUME 79.8 FL (80.0-100.0); MEAN CORPUSCULAR HEMOGLOBIN 26.4 PG (27.0-34.0); MEAN CORPUSCULAR HGB CONC 33.1 % (32.0-36.0); NEUT % 84.8 % (16.0-70.0); PLATELET COUNT 298 TH/MM3 (150-450); RED BLOOD COUNT 3.05 MIL/MM3 (4.50-5.90); RED CELL DISTRIBUTION WIDTH 15.1 % (11.6-17.2); WHITE BLOOD COUNT 12.6 TH/MM3 (4.0-11.0)
[2017-05-19 09:41] LABS: HEMO FLAGS DIFF FINAL
--- NOTE | 2017-05-19 09:58 | EKG ---
Date Performed: 05/18/2017 Time Performed: 14:19:38 PTAGE: 72 years EKG: Sinus rhythm MARKED LEFT AXIS DEVIATION PATTERN CONSISTENT WITH PULMONARY DISEASE ABNORMAL ECG NO PREVIOUS TRACING DOCTOR: Ignacio Urena Interpretating Date/Time 05/19/2017 09:57:46
[2017-05-19 09:59] LABS: ANION GAP 8 MEQ/L (5-15); AST (GOT) 23 U/L (15-37); CHLORIDE 100 MEQ/L (98-107); POTASSIUM 3.9 MEQ/L (3.5-5.1); SODIUM (NA) 135 MEQ/L (136-145)
[2017-05-19 10:01] LABS: ALT (GPT) 32 U/L (12-78)
[2017-05-19 10:03] LABS: BLOOD UREA NITROGEN 19 MG/DL (7-18); GLOMERULAR FILTRATION RATE 59 ML/MIN (>89)
[2017-05-19 10:06] LABS: ALKALINE PHOSPHATASE 138 U/L (45-117)
[2017-05-19 10:12] LABS: TOTAL BILIRUBIN ADULT 0.4 MG/DL (0.2-1.0)
[2017-05-19] MEDS: LACTOBACILLUS ACIDOPHILUS TAB PO SCH (10:15)
[2017-05-19] MEDS ORDERED: ENOX80IN SQ (10:27)
[2017-05-19] MEDS ORDERED: ENOXAPARIN SODIUM 80 MG/0.8 ML SYRINGE SQ SCH (11:45)
[2017-05-19 11:48] VITALS: BP 133/62; PULSE 97; RESP 20; TEMP 98.1; O2SAT 96
[2017-05-19] MEDS ORDERED: LACTCHW3 CHEW (12:36)
[2017-05-19] MEDS ORDERED: AUGM875T3 PO (12:36)
[2017-05-19] MEDS: SODIUM CHLORIDE 0.9% FLUSH 10 ML FLUSH IV FLUSH SCH (13:38)
--- NOTE | 2017-05-21 13:17 | HHI.FF ---
Face to Face Verification Diagnosis: (1) Aspiration pneumonia of left lower lobe (2) Sepsis Physical Therapy Order: Evaluate and Treat Home Health Nursing Order: Signs/symptoms of disease process I have seen patient Jules Zapata on 05/21/17. My clinical findings support the need for the requested home health care services because: Patient has SOB I certify that my clinical findings support that this patient is homebound because: Poor cardiac reserve Juan José Lyman MD May 21, 2017 13:17
== END 2017-05-19 14:55 | disposition home health service (06) | DRG 871 ==
LOC: PHED 12:14 → PHEDA 16:54 → PH3A 18:24
PROVIDERS: ADMIT Hospitalist; ATTEND Hospitalist
DX: A41.9 Sepsis, unspecified organism (principal); J69.0 Pneumonitis due to inhalation of food and vomit; C16.9 Malignant neoplasm of stomach, unspecified; E11.9 Type 2 diabetes mellitus without complications; I10 Essential (primary) hypertension; K44.9 Diaphragmatic hernia without obstruction or gangrene; G47.00 Insomnia, unspecified; G47.30 Sleep apnea, unspecified; I25.10 Atherosclerotic heart disease of native coronary artery without angina pectoris; M17.0 Bilateral primary osteoarthritis of knee; N40.0 Benign prostatic hyperplasia without lower urinary tract symptoms; Z85.46 Personal history of malignant neoplasm of prostate; Z86.73 Personal history of transient ischemic attack (TIA), and cerebral infarction without residual deficits; Z87.442 Personal history of urinary calculi; Z95.1 Presence of aortocoronary bypass graft; Z95.5 Presence of coronary angioplasty implant and graft; F41.9 Anxiety disorder, unspecified; R00.0 Tachycardia, unspecified
CPT/HCPCS: 71010; 71275; 80053; 82550; 83605; 83735; 84484; 85025; 85610; 85730; 87040; 87804; 93005; 96374; J0295; J0780; J1650; J2543; J3370; J7050; Q9967

== ENCOUNTER 2017-06-23 14:06 | Observation (INO) | payer MEDICARE, BC, OTHER ==
[2017-06-23] VITALS (12 sets, daily range): BP systolic 120–153; BP diastolic 46–63; PULSE 72–91; RESP 16–20; TEMP 98.2–99.9; O2SAT 96–100
[~2017-06-23] VITALS: Ht 172.7 cm; Wt 84.0 kg
[~2017-06-23 14:06] MED LIST changes: +AUGM875T3 PO; +LACTCHW3 CHEW; +OXYC1CAP PO
--- NOTE | 2017-06-23 15:04 | RADRPT ---
EXAM DATE/TIME: 06/23/2017 14:31 [place] COMPARISON: CHEST SINGLE AP, May 18, 2017, 15:11. INDICATIONS : Short of breath. MEDICAL HISTORY : Hypertension. Hypercholesterolemia. Renal calculi. Carcinoma, gastric. Metastatic, liver. Cardiov ascular disease. Prostate cancer.CVA. Sleep apnea. Arthritis.Diabetic.Chemotherapy. SURGICAL HISTORY : CABG. Coronary artery stent. Infusaport. ENCOUNTER: Initial ACUITY: 1 day PAIN SCORE: 0/10 LOCATION: chest FINDINGS: Chest is stable in appearance. There is no evidence of acute airspace disease or congestion. Post surgical changes following open heart surgery noted. Right-sided Sejiwg-a-Sjda catheter remains in place. CONCLUSION: Stable chest without evidence of acute process. Kvng Cruz MD on June 23, 2017 at 15:02 Board Certified Radiologist. This report was verified electronically.
[2017-06-23 15:24] LABS: CHLORIDE 102 MEQ/L (98-107); SODIUM (NA) 136 MEQ/L (136-145)
[2017-06-23 15:28] LABS: ALBUMIN 2.4 GM/DL (3.4-5.0); BICARBONATE 24.7 MEQ/L (21.0-32.0); BLOOD UREA NITROGEN 25 MG/DL (7-18); CALCIUM 8.6 MG/DL (8.5-10.1); GLUCOSE,RANDOM 159 MG/DL (74-106)
[2017-06-23 15:31] LABS: ALT (GPT) 21 U/L (12-78); AST (GOT) 24 U/L (15-37); GLOMERULAR FILTRATION RATE 50 ML/MIN (>89)
[2017-06-23 15:33] LABS: TOTAL BILIRUBIN ADULT 0.5 MG/DL (0.2-1.0); TOTAL PROTEIN 6.3 GM/DL (6.4-8.2)
[2017-06-23 15:34] LABS: ALKALINE PHOSPHATASE 131 U/L (45-117)
[2017-06-23 15:47] LABS: AUTOMATED NEUTROPHIL # 6.8 TH/MM3 (1.8-7.7); BASOPHIL % 0.2 % (0.0-2.0); EOSINOPHIL % 0.2 % (0.0-4.0); LYMPH % 14.2 % (9.0-44.0); LYMPHOCYTE # 1.2 TH/MM3 (1.0-4.8); MEAN CELL VOLUME 78.3 FL (80.0-100.0); MEAN CORPUSCULAR HEMOGLOBIN 25.7 PG (27.0-34.0); MEAN CORPUSCULAR HGB CONC 32.8 % (32.0-36.0); MEAN PLATELET VOLUME 7.8 FL (7.0-11.0); MONO % 5.4 % (0.0-8.0); MONOCYTE # 0.5 TH/MM3 (0-0.9); PLATELET COUNT 450 TH/MM3 (150-450); RED BLOOD COUNT 2.09 MIL/MM3 (4.50-5.90); RED CELL DISTRIBUTION WIDTH 16.6 % (11.6-17.2); WHITE BLOOD COUNT 8.5 TH/MM3 (4.0-11.0)
[2017-06-23 15:49] LABS: HEMATOCRIT 16.4 % (39.0-51.0); HEMOGLOBIN 5.4 GM/DL (13.0-17.0)
--- NOTE | 2017-06-23 15:56 | PD ---
HPI Chief Complaint: Abnormal Results Time Seen by Provider: 14:19 Travel History International Travel<30 days: No Contact w/Intl Traveler<30days: No Traveled to known affect area: No History of Present Illness HPI Patient is a 72-year-old male with history of metastatic gastric cancer, who comes in due to anemia. He received chemotherapy 3 weeks ago and went to have routine blood work done today that showed a hemoglobin of less than 6. He was told to come to the ED for a blood transfusion. He says he has been feeling very tired especially when exerting himself. He denies chest pain. He denies dizziness. He has not seen any bleeding. He denies any palpitations. He has had blood transfusions in the past due to bleeding ulcers. He reports no issues with these. PFSH Past Medical History Arthritis: Yes Anxiety: Yes Depression: Yes Cancer: Yes (prostate, stomach) Cardiac Catheterization: Yes Cardiovascular Problems: Yes (cabg, heart stents, vascular stents) High Cholesterol: Yes Chemotherapy: Yes (3 weeks ago) Cerebrovascular Accident: Yes Diabetes: Yes (borderline) Patient Takes Glucophage: No Endocrine: No Gastrointestinal Disorders: Yes (stomach cancer, ulcers) Genitourinary: Yes (prostate cancer) Hepatitis: No Hiatal Hernia: Yes Hypertension: Yes Immune Disorder: No Kidney Stones: Yes Medical other: Yes Musculoskeletal: Yes (arthritis in knees) Neurologic: Yes (cva x 2) Psychiatric: Yes (anxiety) Reproductive: No Respiratory: Yes (sleep apnea) Immunizations Current: No Radiation Therapy: No Sleep Apnea: Yes Thyroid Disease: No Tetanus Vaccination: < 5 Years Influenza Vaccination: No Past Surgical History AICD: No Cardiac Surgery: Yes (triple bypass, coratid artery repair, cardiac stents) Coronary Artery Bypass Graft: Yes Coronary Stent: Yes Joint Replacement: No Pacemaker: No Other Surgery: Yes Social History Alcohol Use: Yes (occ) Tobacco Use: No Substance Use: No Allergies-Medications (Allergen,Severity, Reaction): Coded Allergies: No Known Allergies (Unverified Allergy, Unknown, 05/18/17) Reported Meds & Prescriptions Reported Meds & Active Scripts Active Lactinex (Lactobacillus Acidophilus) 1 Chew 1 Tab CHEW BID Reported Oxycodone (Oxycodone HCl) 5 Mg Cap 5 Mg PO Q4H PRN Vitamin B Complex (B-Complex Vitamins) 1 Tab DAILY Prochlorperazine Maleate 10 Mg Tab 10 Mg PO Q4H PRN Omeprazole 20 Mg Tab 20 Mg PO DAILY Bicalutamide 50 Mg Tab 50 Mg PO DAILY Hazardous agent; use appropriate precautions for handling & disposal. Losartan (Losartan Potassium) 50 Mg Tab 50 Mg PO DAILY Magnesium Oxide 400 Mg Tab 400 Mg PO DAILY Nitroglycerin SL (Nitroglycerin) 0.4 Mg Subl 0.4 Mg SL DIRECTED PRN ONE TABLET UNDER THE TONGUE NEEDED FOR CHEST PAIN, MAY REPEAT EVERY FIVE MINUTES FOR A TOTAL OF 3 DOSES OR CALL 911 IF NO RELIEF Lovenox Inj (Enoxaparin Sodium) 80 mg/0.8 ML Syr 80 Mg SQ BID Folic Acid 0.8 Mg Tab 1,000 Mcg PO DAILY Metoprolol Succinate ER 24 HR (Metoprolol Succinate) 100 Mg Tab 100 Mg PO DAILY Caro (Dutasteride-Tamsulosin) 0.5-0.4 Mg Cap 1 Cap PO DAILY Lorazepam 0.5 Mg Tab 0.5 Mg PO DAILY PRN Review of Systems Except as stated in HPI: all other systems reviewed are Neg General / Constitutional: No: Fever, Chills Eyes: No: Blurred Vision HENT: No: Headaches, Lightheadedness Cardiovascular: No: Chest Pain or Discomfort, Palpitations Respiratory: No: Shortness of Breath Gastrointestinal: No: Nausea, Vomiting Genitourinary: No: Dysuria Musculoskeletal: No: Edema Skin: No Rash, No Change in Pigmentation Neurologic: No: Weakness, Dizziness, Syncope Physical Exam Narrative GENERAL: Awake and alert, in no acute distress. SKIN: Focused skin assessment warm/dry. Appears pale. HEAD: Atraumatic. Normocephalic. EYES: Pupils equal and round. No scleral icterus. Conjunctival pallor. ENT: Mucous membranes pink and moist. NECK: Trachea midline. No JVD. CARDIOVASCULAR: Regular rate and rhythm. No murmur appreciated. RESPIRATORY: No accessory muscle use. Clear to auscultation. Breath sounds equal bilaterally. GASTROINTESTINAL: Abdomen soft, non-tender, nondistended. MUSCULOSKELETAL: No obvious deformities. No clubbing. No cyanosis. No edema. NEUROLOGICAL: Awake and alert. No obvious cranial nerve deficits. Motor grossly within normal limits. Normal speech. PSYCHIATRIC: Appropriate mood and affect; insight and judgment normal. Data Data Last Documented VS Orders Orders Iv Access Insert/Monitor (06/23/17 14:25) Complete Blood Count With Diff (06/23/17 14:25) Comprehensive Metabolic Panel (06/23/17 14:25) Chest, Single Ap (06/23/17 ) Type And Screen (06/23/17 14:25) Red Blood Cells (Rbc) (06/23/17 15:55) Blood Product Administration (06/23/17 15:55) Sodium Chlor 0.9% 250 Ml Inj (Ns 250 Ml (06/23/17 16:00) Place In Observation (06/23/17 ) Vital Signs (Adult) Q4H (06/23/17 16:56) Activity Oob With Assistance (06/23/17 16:56) Diet Heart Healthy (06/23/17 Dinner) Sodium Chloride 0.9% Flush (Ns Flush) (06/23/17 17:00) Sodium Chloride 0.9% Flush (Ns Flush) (06/23/17 21:00) Acetaminophen (Tylenol) (06/23/17 17:00) Ondansetron Inj (Zofran Inj) (06/23/17 17:00) Temazepam (Restoril) (06/23/17 17:00) Basic Metabolic Panel (Bmp) (06/24/17 06:00) Complete Blood Count With Diff (06/24/17 06:00) Electrocardiogram (06/23/17 16:56) Resp Oxygen Valeriy C Titrat 1-4 L (06/23/17 ) Pt Request For Service (06/23/17 16:56) Case Management Consult (06/23/17 16:56) Scd Bilateral/Knee High BALAJI.BID (06/23/17 16:56) Mao Bilateral/Knee High BALAJI.QSHIFT (06/23/17 16:56) Pharmacologic Contraindication (06/23/17 16:56) Naloxone Inj (Narcan Inj) (06/23/17 17:00) Docusate Sodium-Senna (Layal-Colace) (06/23/17 21:00) Magnesium Hydroxide Liq (Milk Of Magnesi (06/23/17 17:00) Sennosides (Senokot) (06/23/17 17:00) Bisacodyl Supp (Dulcolax Supp) (06/23/17 17:00) Lactulose Liq (Lactulose Liq) (06/23/17 17:00) Bicalutamide (Casodex) (06/24/17 09:00) Enoxaparin Inj (Lovenox Inj) (06/23/17 21:00) Folic Acid (Folate) (06/24/17 09:00) Lorazepam (Ativan) (06/23/17 17:00) Losartan (Cozaar) (06/24/17 09:00) Magnesium Oxide (Mag-Ox) (06/24/17 09:00) Nitroglycerin Sl (Nitrostat Sl) (06/23/17 17:00) Oxycodone (Roxicodone) (06/23/17 17:00) Prochlorperazine Maleate (Compazine) (06/23/17 17:00) Lactobacillus Acidophilus (Lactinex) (06/23/17 21:00) Metoprolol Succinate Er (Toprol Xl) (06/24/17 09:00) Admit Order (Ed Use Only) (06/23/17 ) Pantoprazole (Protonix) (06/23/17 17:15) Labs Laboratory Tests Test 06/23/17 14:50 White Blood Count 8.5 TH/MM3 Red Blood Count 2.09 MIL/MM3 Hemoglobin 5.4 GM/DL Hematocrit 16.4 % Mean Corpuscular Volume 78.3 FL Mean Corpuscular Hemoglobin 25.7 PG Mean Corpuscular Hemoglobin Concent 32.8 % Red Cell Distribution Width 16.6 % Platelet Count 450 TH/MM3 Mean Platelet Volume 7.8 FL Neutrophils (%) (Auto) 80.0 % Lymphocytes (%) (Auto) 14.2 % Monocytes (%) (Auto) 5.4 % Eosinophils (%) (Auto) 0.2 % Basophils (%) (Auto) 0.2 % Neutrophils # (Auto) 6.8 TH/MM3 Lymphocytes # (Auto) 1.2 TH/MM3 Monocytes # (Auto) 0.5 TH/MM3 Eosinophils # (Auto) 0.0 TH/MM3 Basophils # (Auto) 0.0 TH/MM3 CBC Comment AUTO DIFF Differential Comment AUTO DIFF CONFIRMED Ovalocytes 1+ Rouleau PRESENT Blood Urea Nitrogen 25 MG/DL Creatinine 1.40 MG/DL Random Glucose 159 MG/DL Total Protein 6.3 GM/DL Albumin 2.4 GM/DL Calcium Level 8.6 MG/DL Alkaline Phosphatase 131 U/L Aspartate Amino Transf (AST/SGOT) 24 U/L Alanine Aminotransferase (ALT/SGPT) 21 U/L Total Bilirubin 0.5 MG/DL Sodium Level 136 MEQ/L Potassium Level 4.0 MEQ/L Chloride Level 102 MEQ/L Carbon Dioxide Level 24.7 MEQ/L Anion Gap 9 MEQ/L Estimat Glomerular Filtration Rate 50 ML/MIN MDM Medical Decision Making Medical Screen Exam Complete: Yes Emergency Medical Condition: Yes Differential Diagnosis anemia vs neutropenia vs blood loss Narrative Course Patient is a 72-year-old male who comes in due to low hemoglobin. He has history of carcinoma and being treated with chemotherapy, he had lab test done today showed low hemoglobin was told to come to the ED. He says he has been feeling little short of breath with exertion. Labs sent show hemoglobin of 5.4. 2 units ordered for transfusion. Patient will be placed in observation for further management. Diagnosis Primary Impression: Anemia Qualified Codes: D64.9 - Anemia, unspecified Admitting Information Admitting Physician Requests: Observation Tori Delong MD Jun 23, 2017 15:56
[2017-06-23] MEDS ORDERED: SODIUM CHLOR 0.9% 250 ML INJ 250 ML IV ONE (16:00)
[2017-06-23 16:28] LABS: OVALOCYTES 1+ (NORMAL); ROULEAUX PRESENT (NORMAL)
[2017-06-23] MEDS ORDERED: MAGNESIUM HYDROXIDE SUSP 30 ML CUP PO PRN (17:00)
[2017-06-23] MEDS ORDERED: TEMAZEPAM 15 MG CAP PO PRN (17:00)
[2017-06-23] MEDS ORDERED: ONDANSETRON HCL 4 MG/2 ML VIAL IVP PRN (17:00)
[2017-06-23] MEDS ORDERED: LORazepam 0.5 MG TAB PO PRN (17:00)
[2017-06-23] MEDS ORDERED: ACETAMINOPHEN 325 MG TAB PO PRN (17:00)
[2017-06-23] MEDS ORDERED: PROCHLORPERAZINE MALEATE 10 MG TAB PO PRN (17:00)
[2017-06-23] MEDS ORDERED: NALOXONE HCL 0.4 MG/ML AMP IV PUSH PRN (17:00)
[2017-06-23] MEDS ORDERED: SENNOSIDES 8.6 MG TAB PO PRN (17:00)
[2017-06-23] MEDS ORDERED: LACTULOSE SYRUP 20 GM/30 ML CUP PO PRN (17:00)
[2017-06-23] MEDS ORDERED: SODIUM CHLORIDE 0.9% FLUSH 10 ML FLUSH IV FLUSH PRN (17:00)
[2017-06-23] MEDS ORDERED: NITROGLYCERIN 0.4 MG SL 25 TABS/BTL SL PRN (17:00)
[2017-06-23] MEDS ORDERED: BISACODYL 10 MG SUPP RECTAL PRN (17:00)
[2017-06-23] MEDS: PANTOPRAZOLE SOD 20 MG DELAYED RELEASE TAB PO SCH (17:42)
--- NOTE | 2017-06-23 18:02 | HHI.HP ---
HPI Service [facility] Primary Care Physician La Nena Mcgowan MD Admission Diagnosis Anemia Diagnoses: Travel History International Travel<30 Days: No Contact w/Intl Traveler <30 Da: No Traveled to Known Affected Are: No History of Present Illness 72-year-old male with history of metastatic gastric cancer, CAD with CABG, vascular stents in stomach, prostate CA, sleep apnea CPAP at home at night at times. Came with sob and was sent by his doctor for transfusion, who comes in due to anemia. He received chemotherapy 3 weeks ago and went to have routine blood work done today that showed a hemoglobin of less than 6. He was told to come to the ED for a blood transfusion. He says he has been feeling very tired especially when exerting himself. He denies chest pain. He denies dizziness. He has not seen any bleeding. He denies any palpitations. He has had blood transfusions in the past due to bleeding ulcers. He reports no issues with these. Vomited 2 days ago. Feels sob if he is walking a block getting worse. no fever, chills. No n/v/d/c. Some nausea but resolved. Review of Systems Except as stated in HPI: all other systems reviewed are Neg Past Family Social History Past Medical History metastatic gastric cancer, CAD with CABG, vascular stents in stomach, prostate CA, sleep apnea CPAP at home at night at times Past Surgical History Triple bypass, coratid artery repair, cardiac stents) Reported Medications Reported Meds & Active Scripts Active Lactinex (Lactobacillus Acidophilus) 1 Chew 1 Tab CHEW BID Reported Oxycodone (Oxycodone HCl) 5 Mg Cap 5 Mg PO Q4H PRN Vitamin B Complex (B-Complex Vitamins) 1 Tab DAILY Prochlorperazine Maleate 10 Mg Tab 10 Mg PO Q4H PRN Omeprazole 20 Mg Tab 20 Mg PO DAILY Bicalutamide 50 Mg Tab 50 Mg PO DAILY Hazardous agent; use appropriate precautions for handling & disposal. Losartan (Losartan Potassium) 50 Mg Tab 50 Mg PO DAILY Magnesium Oxide 400 Mg Tab 400 Mg PO DAILY Nitroglycerin SL (Nitroglycerin) 0.4 Mg Subl 0.4 Mg SL DIRECTED PRN ONE TABLET UNDER THE TONGUE NEEDED FOR CHEST PAIN, MAY REPEAT EVERY FIVE MINUTES FOR A TOTAL OF 3 DOSES OR CALL 911 IF NO RELIEF Lovenox Inj (Enoxaparin Sodium) 80 mg/0.8 ML Syr 80 Mg SQ BID Folic Acid 0.8 Mg Tab 1,000 Mcg PO DAILY Metoprolol Succinate ER 24 HR (Metoprolol Succinate) 100 Mg Tab 100 Mg PO DAILY Caro (Dutasteride-Tamsulosin) 0.5-0.4 Mg Cap 1 Cap PO DAILY Lorazepam 0.5 Mg Tab 0.5 Mg PO DAILY PRN Allergies: Coded Allergies: No Known Allergies (Unverified Allergy, Unknown, 05/18/17) Family History foster care doesn't know parents Social History Occasional EtOH use, no tobacco use or illicit drug use. Physical Exam Vital Signs Vital Signs Date Time Temp Pulse Resp B/P (MAP) Pulse Ox O2 Delivery O2 Flow Rate FiO2 06/23/17 18:00 89 18 132/55 (80) 96 06/23/17 16:49 78 18 134/48 (76) 98 Room Air 06/23/17 15:37 76 16 120/46 (70) 96 Room Air 06/23/17 14:30 97 Room Air 06/23/17 14:26 99.0 91 18 153/57 (89) 98 Physical Exam GENERAL: This is a well-nourished, well-developed patient, in no apparent distress. SKIN: Pale. No rashes, ecchymoses or lesions. Cool and dry. HEAD: Atraumatic. Normocephalic. No temporal or scalp tenderness. EYES: Pupils equal round and reactive. Extraocular motions intact. No scleral icterus. No injection or drainage. ENT: Nose without bleeding, purulent drainage or septal hematoma. Throat without erythema, tonsillar hypertrophy or exudate. Uvula midline. Airway patent. NECK: Trachea midline. No JVD or lymphadenopathy. Supple, nontender, no meningeal signs. CARDIOVASCULAR: Regular rate and rhythm without murmurs, gallops, or rubs. RESPIRATORY: Clear to auscultation. Breath sounds equal bilaterally. No wheezes , rales, or rhonchi. GASTROINTESTINAL: Abdomen soft, non-tender, nondistended. No hepato-splenomegaly , or palpable masses. No guarding. MUSCULOSKELETAL: Extremities without clubbing, cyanosis. +2 bilateral LE edema. No joint tenderness, effusion, or edema noted. No calf tenderness. Negative Homans sign bilaterally. NEUROLOGICAL: Awake and alert. Cranial nerves II through XII intact. Motor and sensory grossly within normal limits. Five out of 5 muscle strength in all muscle groups. Normal speech. Laboratory Laboratory Tests Test 06/23/17 14:50 White Blood Count 8.5 Red Blood Count 2.09 Hemoglobin 5.4 Hematocrit 16.4 Mean Corpuscular Volume 78.3 Mean Corpuscular Hemoglobin 25.7 Mean Corpuscular Hemoglobin Concent 32.8 Red Cell Distribution Width 16.6 Platelet Count 450 Mean Platelet Volume 7.8 Neutrophils (%) (Auto) 80.0 Lymphocytes (%) (Auto) 14.2 Monocytes (%) (Auto) 5.4 Eosinophils (%) (Auto) 0.2 Basophils (%) (Auto) 0.2 Neutrophils # (Auto) 6.8 Lymphocytes # (Auto) 1.2 Monocytes # (Auto) 0.5 Eosinophils # (Auto) 0.0 Basophils # (Auto) 0.0 CBC Comment AUTO DIFF Differential Comment AUTO DIFF CONFIRMED Ovalocytes 1+ Rouleau PRESENT Blood Urea Nitrogen 25 Creatinine 1.40 Random Glucose 159 Total Protein 6.3 Albumin 2.4 Calcium Level 8.6 Alkaline Phosphatase 131 Aspartate Amino Transf (AST/SGOT) 24 Alanine Aminotransferase (ALT/SGPT) 21 Total Bilirubin 0.5 Sodium Level 136 Potassium Level 4.0 Chloride Level 102 Carbon Dioxide Level 24.7 Anion Gap 9 Estimat Glomerular Filtration Rate 50 Result Diagram: 06/23/17 1450 06/23/17 1450 Imaging Last Impressions Chest X-Ray 06/23/17 0000 Signed Impressions: Service Date/Time: Friday, June 23, 2017 14:31 - CONCLUSION: Stable chest without evidence of acute process. Kvng Cruz MD Caprini VTE Risk Assessment Caprini VTE Risk Assessment: Mod/High Risk (score >= 2) Caprini Risk Assessment Model Point Value = 1 Point Value = 2 Point Value = 3 Point Value = 5 Age 41-60 Minor surgery BMI > 25 kg/m2 Swollen legs Varicose veins or History of unexplained or recurrent spontaneous Oral contraceptives or hormone replacement Sepsis (< 1 month) Serious lung disease, including pneumonia (< 1 month) Abnormal pulmonary function Acute myocardial infarction Congestive heart failure (< 1 month) History of inflammatory bowel disease Medical patient at bed rest Age 61-74 Arthroscopic surgery Major open surgery (> 45 min) Laparoscopic surgery (> 45 min) Malignancy Confined to bed (> 72 hours) Immobilizing plaster cast Central venous access Age >= 75 History of VTE Family history of VTE Factor V Leiden Prothrombin [id number] Lupus anticoagulant Anticardiolipin antibodies Elevated serum homocysteine Heparin-induced thrombocytopenia Other congenital or acquired thrombophilia Stroke (< 1 month) Elective arthroplasty Hip, pelvis, or leg fracture Acute spinal cord injury (< 1 month) Prophylaxis Regimen Total Risk Factor Score Risk Level Prophylaxis Regimen 0-1 Low Early ambulation 2 Moderate Order ONE of the following: *Sequential Compression Device (SCD) *Heparin 5000 units SQ BID 3-4 Higher Order ONE of the following medications: *Heparin 5000 units SQ TID *Enoxaparin/Lovenox 40 mg SQ daily (WT < 150 kg, CrCl > 30 mL/min) *Enoxaparin/Lovenox 30 mg SQ daily (WT < 150 kg, CrCl > 10-29 mL/min) *Enoxaparin/Lovenox 30 mg SQ BID (WT < 150 kg, CrCl > 30 mL/min) AND/OR *Sequential Compression Device (SCD) 5 or more Highest Order ONE of the following medications: *Heparin 5000 units SQ TID (Preferred with Epidurals) *Enoxaparin/Lovenox 40 mg SQ daily (WT < 150 kg, CrCl > 30 mL/min) *Enoxaparin/Lovenox 30 mg SQ daily (WT < 150 kg, CrCl > 10-29 mL/min) *Enoxaparin/Lovenox 30 mg SQ BID (WT < 150 kg, CrCl > 30 mL/min) AND *Sequential Compression Device (SCD) Assessment and Plan Assessment and Plan 72 yo male with PMH of metastatic gastric cancer, had chemo 3 week ago, he was sup[posed to start chemo tomorrow, CAD with CABG, vascular stents in stomach, prostate CA, sleep apnea CPAP at home at night at times: Symptomatic Severe Anemia related to cancer and chemo H/o metastatic gastric cancer, had chemo 3 week ago, he was supposed to start chemo 06/24/17 and had lab work done that showed anemia sent by his DR to ER for blood transfusion HGB of 5.4 on admission Transfuse 2 U PRBCs. Pretreat, also give lasix as patient with LE edema Chronic medical problems a baseline. Restart home meds as appropriate. CAD with CABG, vascular stents in stomach, prostate CA, sleep apnea CPAP at home at night at times DVT ppx SCD/TEDS CI chemoppx as with low HGB and high risk of bleeding Discussed Condition With pt, family -, nurse, ED physician Physician Certification 2 Midnight Certification Type: Admission for Inpatient Services Order for Inpatient Services The services are ordered in accordance with Medicare regulations or non- Medicare payer requirements, as applicable. In the case of services not specified as inpatient-only, they are appropriately provided as inpatient services in accordance with the 2-midnight benchmark. Estimated LOS (days): 3 days is the estimated time the patient will need to remain in the hospital, assuming treatment plan goals are met and no additional complications. Post-Hospital Plan: Home Magdalene Brennan MD Jun 23, 2017 18:02
[2017-06-23] MEDS ORDERED: FUROSEMIDE 20 MG/2 ML VIAL IV PUSH ONE (18:45)
[2017-06-23] MEDS: DOCUSATE SODIUM 50 MG/SENNA 8.6 MG TAB PO SCH (21:00)
[2017-06-23] MEDS: SODIUM CHLORIDE 0.9% FLUSH 10 ML FLUSH IV FLUSH SCH (21:14)
[2017-06-23] MEDS: LACTOBACILLUS ACIDOPHILUS TAB PO SCH (21:14)
[2017-06-23] MEDS: ENOXAPARIN SODIUM 80 MG/0.8 ML SYRINGE SQ SCH (21:15)
[2017-06-24 02:36] VITALS: BP 147/77; PULSE 71; RESP 18; TEMP 97.8; O2SAT 99
[2017-06-24 05:06] VITALS: BP 122/64; PULSE 62; RESP 18; TEMP 97.7; O2SAT 96
[2017-06-24 05:36] LABS: BASOPHIL % 0.2 % (0.0-2.0); EOSINOPHIL % 0.5 % (0.0-4.0); HEMATOCRIT 22.5 % (39.0-51.0); HEMOGLOBIN 7.4 GM/DL (13.0-17.0); LYMPHOCYTE # 1.3 TH/MM3 (1.0-4.8); MEAN CELL VOLUME 81.9 FL (80.0-100.0); MEAN CORPUSCULAR HEMOGLOBIN 26.9 PG (27.0-34.0); MEAN CORPUSCULAR HGB CONC 32.9 % (32.0-36.0); MEAN PLATELET VOLUME 7.1 FL (7.0-11.0); MONO % 7.5 % (0.0-8.0); MONOCYTE # 0.6 TH/MM3 (0-0.9); NEUT % 74.8 % (16.0-70.0); PLATELET COUNT 408 TH/MM3 (150-450); RED BLOOD COUNT 2.75 MIL/MM3 (4.50-5.90); RED CELL DISTRIBUTION WIDTH 16.1 % (11.6-17.2); WHITE BLOOD COUNT 7.9 TH/MM3 (4.0-11.0)
[2017-06-24 05:55] LABS: CALCIUM 8.6 MG/DL (8.5-10.1)
[2017-06-24 05:56] LABS: BICARBONATE 29.6 MEQ/L (21.0-32.0)
[2017-06-24 05:59] LABS: CREATININE 1.3 MG/DL (0.60-1.30)
[2017-06-24 08:00] VITALS: BP 140/65; PULSE 78; RESP 18; TEMP 97.8; O2SAT 100; O2SAT 99
--- NOTE | 2017-06-24 08:55 | HHI.PR ---
Subjective Remarks Feels better no n/v/d/cNo sob cp. Comfortable to go home Feels tires Objective Vitals Vital Signs Date Time Temp Pulse Resp B/P (MAP) Pulse Ox O2 Delivery O2 Flow Rate FiO2 06/24/17 08:00 97.8 78 18 140/65 (90) 100 06/24/17 05:06 97.7 62 18 122/64 (83) 96 06/24/17 02:36 97.8 71 18 147/77 99 06/23/17 23:59 98.2 72 18 124/58 06/23/17 23:30 99.1 73 18 122/62 (82) 99 06/23/17 23:24 99.1 73 18 122/62 06/23/17 20:30 98.9 80 18 139/63 (88) 06/23/17 20:27 99.9 79 18 125/63 100 06/23/17 19:54 98.9 80 20 139/63 06/23/17 19:43 98 21 06/23/17 18:05 96 06/23/17 18:00 89 18 132/55 (80) 96 06/23/17 16:49 78 18 134/48 (76) 98 Room Air 06/23/17 15:37 76 16 120/46 (70) 96 Room Air 06/23/17 14:30 97 Room Air 06/23/17 14:26 99.0 91 18 153/57 (89) 98 I/O 06/23/17 06/23/17 06/23/17 06/24/17 06/24/17 06/24/17 06:59 14:59 22:59 06:59 14:59 22:59 Intake Total 480 ml 1330 ml Balance 480 ml 1330 ml Intake IV Total 100 ml Packed Cells 400 ml 1150 ml Blood Product IV Normal Saline Flush 80 ml 80 ml # Voids 1 Result Diagram: 06/24/17 0510 06/24/17 0510 Imaging Last Impressions Chest X-Ray 06/23/17 0000 Signed Impressions: Service Date/Time: Friday, June 23, 2017 14:31 - CONCLUSION: Stable chest without evidence of acute process. Kvng Cruz MD Objective Remarks GENERAL: This is a well-nourished, well-developed patient, in no apparent distress. CARDIOVASCULAR: Regular rate and rhythm without murmurs, gallops, or rubs. RESPIRATORY: Clear to auscultation. Breath sounds equal bilaterally. No wheezes , rales, or rhonchi. GASTROINTESTINAL: Abdomen soft, non-tender, nondistended. No hepato-splenomegaly , or palpable masses. No guarding. MUSCULOSKELETAL: Extremities without clubbing, cyanosis. +2 bilateral LE edema. No joint tenderness, effusion, or edema noted. No calf tenderness. Negative Homans sign bilaterally. NEUROLOGICAL: Awake and alert. Cranial nerves II through XII intact. Motor and sensory grossly within normal limits. Five out of 5 muscle strength in all muscle groups. Normal speech. A/P Assessment and Plan 72 yo male with PMH of metastatic gastric cancer, had chemo 3 week ago, he was sup[posed to start chemo tomorrow, CAD with CABG, vascular stents in stomach, prostate CA, sleep apnea CPAP at home at night at times: Symptomatic Severe Anemia related to cancer and chemo H/o metastatic gastric cancer, had chemo 3 week ago, he was supposed to start chemo 06/24/17 and had lab work done that showed anemia sent by his DR to ER for blood transfusion HGB of 5.4 on admission Transfuse 2 U PRBCs. Pretreat, also give lasix as patient with LE edema. Repeat HGB at 7.4. Will order another 1 unit of RBC pretreat. Poss DC later today Chronic medical problems a baseline. Restart home meds as appropriate. CAD with CABG, vascular stents in stomach, prostate CA, sleep apnea CPAP at home at night at times DVT ppx SCD/TEDS CI chemoppx as with low HGB and high risk of bleeding Discussed Condition With pt, , nurse Transfuse 1 U PRBC and we will DC later Discharge Planning DC home in stable condition to f/u as OP with PCP and consultants Meds per med reconciliations Activity ad meseret as tolerated Diet healthy heart diet as tolerated Magdalene Brennan MD Jun 24, 2017 08:55
[2017-06-24] MEDS ORDERED: BICALUTAMIDE 50 MG TAB PO SCH (09:00)
[2017-06-24] MEDS ORDERED: ACETAMINOPHEN 325 MG TAB PO PRN (09:00)
[2017-06-24] MEDS ORDERED: FINASTERIDE 5 MG TAB PO SCH (09:00)
[2017-06-24] MEDS ORDERED: METOPROLOL SUCCINATE 50 MG EXTENDED RELEASE TAB PO SCH (09:00)
[2017-06-24] MEDS ORDERED: SODIUM CHLOR 0.9% 250 ML INJ 250 ML IV ONE (09:00)
[2017-06-24] MEDS ORDERED: LOSARTAN 50 MG TAB PO SCH (09:00)
[2017-06-24] MEDS ORDERED: TAMSULOSIN HCL 0.4 MG CAP PO SCH (09:00)
[2017-06-24] MEDS ORDERED: MAGNESIUM OXIDE 400 MG TAB PO SCH (09:00)
[2017-06-24] MEDS ORDERED: DUTASTERIDE TAMSULOSIN PO SCH (09:00)
[2017-06-24] MEDS ORDERED: FOLIC ACID 1 MG TAB PO SCH (09:00)
[2017-06-24] MEDS ORDERED: diphenhydrAMINE HCL 25 MG CAP PO PRN (09:00)
[2017-06-24] MEDS: LACTOBACILLUS ACIDOPHILUS TAB PO SCH (09:15)
[2017-06-24] MEDS: DOCUSATE SODIUM 50 MG/SENNA 8.6 MG TAB PO SCH (09:15)
[2017-06-24] MEDS: PANTOPRAZOLE SOD 20 MG DELAYED RELEASE TAB PO SCH (09:15)
[2017-06-24] MEDS: ENOXAPARIN SODIUM 80 MG/0.8 ML SYRINGE SQ SCH (09:16)
[2017-06-24] MEDS: SODIUM CHLORIDE 0.9% FLUSH 10 ML FLUSH IV FLUSH SCH (09:20)
[2017-06-24] MEDS ORDERED: FUROSEMIDE 20 MG/2 ML VIAL IV PUSH PRN (10:00)
[2017-06-24 11:44] VITALS: BP 154/71; PULSE 75; RESP 16; TEMP 98; O2SAT 98
[2017-06-24 12:03] VITALS: BP 134/66; PULSE 70; RESP 14; TEMP 98.6; O2SAT 100
[2017-06-24 12:33] VITALS: BP 129/61; PULSE 67; RESP 14; TEMP 98; O2SAT 100
--- NOTE | 2017-06-24 14:21 | HHI.DCPOC ---
Discharge Care Plan Goals to Promote Your Health * To prevent worsening of your condition and complications * To maintain your health at the optimal level Directions to Meet Your Goals Take your medications as prescribed Follow your dietary instruction Follow activity as directed Keep your appointments as scheduled Take your immunizations and boosters as scheduled If your symptoms worsen call your PCP, if no PCP go to Urgent Care Center or Emergency Room Smoking is Dangerous to Your Health. Avoid second hand smoke Call the 24-hour hour crisis hotline for domestic abuse at Magdalene Brennan MD Jun 24, 2017 14:21
--- NOTE | 2017-06-24 14:35 | HHI.FF ---
Face to Face Verification Diagnosis: (1) Sepsis (2) Aspiration pneumonia of left lower lobe (3) Gastric carcinoma Physical Therapy Order: Evaluate and Treat, Improve ambulation, Strength and gait training Occupational Therapy Order: Evaluate and Treat, Gross motor coordination Home Health Nursing Order: Medical education Medication education-adverse effect Nursing assessment with vital signs I have seen patient Jules Zapata on 06/24/17. My clinical findings support the need for the requested home health care services because: Ltd mobility - disease progression Deconditioned w/ increased weakness Limited ability to care for self I certify that my clinical findings support that this patient is homebound because: Unsteady gait/balance Tori Evans Jun 24, 2017 14:35
[2017-06-24 15:00] LABS: HEMATOCRIT 25.9 % (39.0-51.0); HEMOGLOBIN 8.5 GM/DL (13.0-17.0)
--- NOTE | 2017-06-24 23:12 | EKG ---
Date Performed: 06/23/2017 Time Performed: 17:25:02 PTAGE: 72 years EKG: Sinus rhythm BORDERLINE LEFT AXIS DEVIATION LOW QRS VOLTAGE IN EXTREMITY LEADS BORDERLINE ECG PREVIOUS TRACING : 05/18/2017 14.19 Compared to prior tracing no significant change DOCTOR: Matheus Cardona Interpretating Date/Time 06/24/2017 23:11:16
== END 2017-06-24 15:45 | disposition home health service (06) ==
LOC: PHED 14:06 → PHEDA 17:01 → PH3B 17:50
PROVIDERS: ADMIT Hospitalist; ATTEND Hospitalist
DX: D64.9 Anemia, unspecified (principal); C16.9 Malignant neoplasm of stomach, unspecified; R11.2 Nausea with vomiting, unspecified; I10 Essential (primary) hypertension; G47.30 Sleep apnea, unspecified; R06.02 Shortness of breath; M17.0 Bilateral primary osteoarthritis of knee; E78.00 Pure hypercholesterolemia, unspecified; K44.9 Diaphragmatic hernia without obstruction or gangrene; Z95.5 Presence of coronary angioplasty implant and graft; Z95.1 Presence of aortocoronary bypass graft; Z85.46 Personal history of malignant neoplasm of prostate; Z92.21 Personal history of antineoplastic chemotherapy; Z86.73 Personal history of transient ischemic attack (TIA), and cerebral infarction without residual deficits
CPT/HCPCS: 36430; 71010; 80048; 80053; 85014; 85018; 85025; 86850; 86900; 86901; 86920; 93005; 96361; 96372; 96374; 97162; 99285; G0378; G8987; G8988; J1650; J1940; J7050; P9016